=== PATIENT | female | born 1975 | race Caucasian/White ===

== ENCOUNTER 2025-01-06 16:24 | Emergency (ER) | payer OTHER ==
[~2025-01-06] VITALS: Ht 160 cm; Wt 51.3 kg
[2025-01-06 16:35] VITALS: BP 118/83; TEMP 98.1
[2025-01-06 17:36] VITALS: O2SAT 97
== END 2025-01-06 17:50 | disposition home or self-care (01) ==
LOC: ER 16:24
DX: L76.22 Postprocedural hemorrhage of skin and subcutaneous tissue following other procedure (principal); I34.1 Nonrheumatic mitral (valve) prolapse; F17.200 Nicotine dependence, unspecified, uncomplicated; E11.9 Type 2 diabetes mellitus without complications